=== PATIENT | male | born 1950 | race Caucasian/White ===

== ENCOUNTER 2016-07-14 16:17 | Emergency (ER) | payer MEDICARE, MEDICAID ==
[~2016-07-14] VITALS: Ht 182.9 cm; Wt 63.5 kg
[2016-07-14 16:17] VITALS: BP 157/86; PULSE 66; RESP 17; TEMP 97.6; O2SAT 96
[~2016-07-14 16:17] MED LIST: ASPI-1063 PO; BP MEDS; ENAL10TA PO; GABA-531 PO; LOSARTEN PO; METH40TA14; METHADONE PO; PRED20TA PO; RISP2TAB5 PO
--- NOTE | 2016-07-14 17:58 | NUR ---
Note antonio in ED - 07/14/16 at 1820 by FADI Patient to KEERTHI rangel for evaluation. Side rails up. Report given to Lisandra POSADAS
--- NOTE | 2016-07-14 18:11 | NUR ---
Jt alvarez in ED - 07/14/16 at 1820 by FADI ER SWATCH PASTER Татьяна at bedside for evaluation
--- NOTE | 2016-07-14 19:00 | NUR ---
Patient to ER bed 8 to gown for evaluation. Side rails .
--- NOTE | 2016-07-14 19:15 | NUR ---
PT IN BED 8 WITH C/O NUMBNESS AND TINGLING TO BILATERAL HANDS AND FEET. ROGELIO ANTONIO BUSINESS OFFICE ASSISTANT AWARE.
--- NOTE | 2016-07-14 19:31 | NUR ---
Jt alvarez in [facility] - 07/14/16 at 2320 by JANE KEERTHI Vaz RN at bedside examining patient.
--- NOTE | 2016-07-14 19:31 | NUR ---
KEERTHI Holman FURNITURE DUSTER at bedside examining patient.
[2016-07-14 19:55] LABS: HEMATOCRIT 36.2 % (36-54); HEMOGLOBIN 12.3 g/dL (14.0-18.0); MEAN CORPUSCULAR HEMOGLOBIN 27 pg (27-31); MEAN CORPUSCULAR HGB CONC 34 % (32-36); MEAN CORPUSCULAR VOLUME 80 fL (79.0-98.0); PLATELET COUNT (AUTO) 218 K/uL (130-430); RED BLOOD CELL COUNT(AUTO) 4.55 MIL/uL (4.2-6.2); RED CELL DISTRIBUTION WIDTH 12.8 % (9.0-15.0); WHITE BLOOD COUNT (AUTO) 9.8 K/uL (4.8-10.8)
[2016-07-14 20:22] LABS: ATYPICAL LYMPHOCYTES % 0 % (0-0); BAND % (MANUAL) 1 % (0-6); BASOPHILS % (MANUAL) 0 % (0-2); EOSINOPHILS % (MANUAL) 3 % (0-7); LYMPHOCYTES % (MANUAL) 52 % (20-46); MONOCYTES % (MANUAL) 5 % (0-11)
--- NOTE | 2016-07-14 21:15 | NUR ---
Patient given written and verbal discharge instructions and verbalizes understanding. ER MD discussed with patient the results and treatment provided. Given copies of tests performed in ER. Patient in stable condition. ID arm band removed. Rx of gabapentin given. Patient educated on pain management and to follow up with PMD. Pain Scale 1/10. Opportunity for questions provided and answered.
[2016-07-14 21:21] VITALS: BP 146/86; PULSE 76; RESP 17; TEMP 97.6; O2SAT 96
== END 2016-07-14 21:21 | disposition home or self-care (01) ==
LOC: SED 16:17
DX: R20.0 Anesthesia of skin (principal); I10 Essential (primary) hypertension; J44.9 Chronic obstructive pulmonary disease, unspecified; Z71.6 Tobacco abuse counseling; Z91.02 Food additives allergy status
CPT/HCPCS: 36415; 83735-TC; 85007; 85027; 85379; 93005; 99285

== ENCOUNTER 2017-02-22 20:44 | Emergency (ER) | payer MEDICARE, MEDICAID ==
[~2017-02-22] VITALS: Ht 182.9 cm; Wt 68.0 kg
[~2017-02-22 20:44] MED LIST changes: -BP MEDS; -METH40TA14
[2017-02-22 20:45] VITALS: BP_SYST 161
--- NOTE | 2017-02-22 20:45 | NUR ---
Pt in waiting room , awaiting available bed, stable.
--- NOTE | 2017-02-22 21:10 | NUR ---
Patient to ER bed 2 to gown for evaluation. Side rails up. Report given to Steve GREEN.
--- NOTE | 2017-02-22 21:15 | NUR ---
Dr Vivas at bedside to evaluate patient.
--- NOTE | 2017-02-22 21:20 | NUR ---
Patient to ER via triage with c/o right flank pain, urgency, and frequency x 1 week. Patient able to ambulate to bed 2 without difficulty with slow, steady gait. Patient given urinal to attempt to provide urine sample. Patient has been seen and evaluated by Dr Vivas. Will continue to observe and assess.
[2017-02-22] MEDS ORDERED: KETOROLAC TROMETHAMINE 30 MG VIAL IVP ONE (21:30)
[2017-02-22] MEDS ORDERED: ONDANSETRON HCL 4 MG/2 ML VIAL IVP ONE (21:30)
[2017-02-22] MEDS ORDERED: NACL 0.9% 1,000 ML IV ONE (21:30)
--- NOTE | 2017-02-22 21:48 | NUR ---
Patient to X-ray department for films, ambulatory with slow, steady gait.
[2017-02-22 21:49] LABS: BASOPHILS # (AUTO) 0.1 K/uL (0.0-0.2); BASOPHILS % (AUTO) 0.6 % (0.0-2.0); EOSINOPHILS # (AUTO) 0.5 K/uL (0.0-0.4); EOSINOPHILS % (AUTO) 5.8 % (0.0-4.0); HEMATOCRIT 36.2 % (36-54); HEMOGLOBIN 11.6 g/dL (14.0-18.0); LYMPHOCYTES # (AUTO) 3.7 K/uL (1.0-5.5); MEAN CORPUSCULAR HEMOGLOBIN 25 pg (27-31); MEAN CORPUSCULAR HGB CONC 32 % (32-36); MEAN CORPUSCULAR VOLUME 78 fL (79.0-98.0); MONOCYTES # (AUTO) 0.6 K/uL (0.0-1.0); MONOCYTES % (AUTO) 7.5 % (1.7-9.3); NEUTROPHILS # (AUTO) 3.6 K/uL (1.8-7.7); NEUTROPHILS % (AUTO) 42.1 % (40.0-70.0); PLATELET COUNT (AUTO) 257 K/uL (130-430); RED BLOOD CELL COUNT(AUTO) 4.62 MIL/uL (4.2-6.2); RED CELL DISTRIBUTION WIDTH 17.7 % (9.0-15.0); WHITE BLOOD COUNT (AUTO) 8.4 K/uL (4.8-10.8)
--- NOTE | 2017-02-22 21:55 | NUR ---
Patient back in ER, without incident.
[2017-02-22 21:57] LABS: CALCIUM 9.1 mg/dL (8.4-11.0); CREATININE 1.11 mg/dL (0.55-1.30); POTASSIUM 3.8 mmol/L (3.5-5.1)
[2017-02-22 22:03] LABS: ALBUMIN 3.9 g/dL (3.4-4.8); TOTAL BILIRUBIN 0.5 mg/dL (0.0-1.0)
--- NOTE | 2017-02-22 22:05 | NUR ---
Patient ambulated to bathroom to attempt to provide urine sample, will medicate upon return to ER.
--- NOTE | 2017-02-22 22:15 | NUR ---
Scanner not working, unable to scan patient or medication prior to medication administration. IVF infusing without difficulty-no redness or swelling noted at site. Urine sample obtained and sent to lab.
[2017-02-22 22:49] LABS: BILIRUBIN,URINE NEGATIVE (NEGATIVE); BLOOD, URINE 2+ (NEGATIVE); CLARITY/URINE CLEAR (CLEAR); COLOR,URINE YELLOW (YELLOW); GLUCOSE,URINE NEGATIVE (NEGATIVE); KETONES,URINE NEGATIVE (NEGATIVE); LEUKOCYTE ESTERASE ,URINE NEGATIVE (NEGATIVE); NITRITE, URINE NEGATIVE (NEGATIVE); PH,URINE 5.5 (5.0-8.0); PROTEIN URINE NEGATIVE (NEGATIVE); UROBILINOGEN,URINE 0.2 (0.2-1.0)
[2017-02-22 22:52] LABS: BACTERIA,URINE FEW /HPF (None Seen); MUCUS,URINE None Seen /LPF (None Seen); WBC,URINE 0-3 /HPF (0-3)
[2017-02-22 22:57] VITALS: BP_SYST 131
--- NOTE | 2017-02-22 23:00 | NUR ---
Patient given written and verbal discharge instructions and verbalizes understanding. ER MD discussed with patient the results and treatment provided. Patient in stable condition. ID arm band removed. IV catheter removed intact and dressing applied, no active bleeding. Rx of Motrin given. Patient educated on pain management and to follow up with PMD. Pain Scale 2. Opportunity for questions provided and answered.
== END 2017-02-22 23:00 | disposition home or self-care (01) ==
LOC: SED 20:44
DX: R07.89 Other chest pain (principal); I10 Essential (primary) hypertension; J44.9 Chronic obstructive pulmonary disease, unspecified; Z88.8 Allergy status to other drugs, medicaments and biological substances; Z79.82 Long term (current) use of aspirin; Z79.899 Other long term (current) drug therapy
CPT/HCPCS: 36415; 71010; 74176; 80053; 81000; 85025; 96361; 96374; 96375; 99285; J1885; J2405; J7030

== ENCOUNTER 2017-03-10 13:24 | Outpatient (CLI) | payer MEDICARE, MEDICAID | END 2017-03-10 18:07 | disposition home or self-care (01) | LOC: SRD 13:24 | DX: M47.812 Spondylosis without myelopathy or radiculopathy, cervical region (principal); M96.1 Postlaminectomy syndrome, not elsewhere classified | CPT/HCPCS: 72052 ==

== ENCOUNTER 2019-05-15 13:27 | Emergency (ER) | payer MEDICARE, MEDICAID ==
[~2019-05-15 13:27] MED LIST changes: -ASPI-1063 PO; +ASPI-1153 PO
--- NOTE | 2019-05-15 14:20 | NUR ---
Called pt x 1 , no answer
--- NOTE | 2019-05-15 14:33 | NUR ---
Called pt x 2 , no answer
--- NOTE | 2019-05-15 14:40 | NUR ---
Called pt x 3, no answer, LWBS
== END 2019-05-15 14:40 | disposition left against medical advice (07) ==
LOC: SED 13:27
DX: R05 Cough (principal); Z53.21 Procedure and treatment not carried out due to patient leaving prior to being seen by health care provider
CPT/HCPCS: 71045

== ENCOUNTER 2019-05-15 17:46 | Emergency (ER) | payer MEDICARE, MEDICAID ==
[~2019-05-15] VITALS: Ht 167.6 cm; Wt 59.9 kg
--- NOTE | 2019-05-15 17:50 | NUR ---
Patient to ER bed H1 for evaluation. Side rails up.
--- NOTE | 2019-05-15 17:52 | NUR ---
Pt brought by self , A&Ox4, pt presents to ER with cough and congestion for 2 days, afebrile, skin pink and warm, cap refill <3, VSS.
[2019-05-15 17:57] VITALS: BP_SYST 189
--- NOTE | 2019-05-15 18:00 | NUR ---
Татьяна Holman NP at bedside examining patient
[2019-05-15 19:21] VITALS: BP_SYST 159
--- NOTE | 2019-05-15 19:21 | NUR ---
Patient given written and verbal discharge instructions and verbalizes understanding. ER MD discussed with patient the results and treatment provided. Patient in stable condition. ID arm band removed. Rx of Azithromycin, Promethazine and Albuterol given. Patient educated on pain management and to follow up with PMD. Pain Scale 0. Opportunity for questions provided and answered. Medication side effect fact sheet provided.
== END 2019-05-15 19:21 | disposition home or self-care (01) ==
LOC: SED 17:46
DX: J06.9 Acute upper respiratory infection, unspecified (principal); F17.210 Nicotine dependence, cigarettes, uncomplicated; I10 Essential (primary) hypertension; J44.9 Chronic obstructive pulmonary disease, unspecified; Z85.038 Personal history of other malignant neoplasm of large intestine; Z71.6 Tobacco abuse counseling; Z79.899 Other long term (current) drug therapy; Z79.82 Long term (current) use of aspirin; Z91.041 Radiographic dye allergy status
CPT/HCPCS: 36415; 86710; 99283

== ENCOUNTER 2020-05-25 11:14 | Emergency (ER) | payer MEDICARE, MEDICAID ==
[~2020-05-25 11:14] MED LIST changes: -ASPI-1153 PO; +ASPI-1393 PO; -ENAL10TA PO; +ENAL10TA19 PO
[2020-05-25] MEDS ORDERED: PROPOFOL DRIP 100 ML IV ONE (13:03)
== END 2020-05-25 11:38 | disposition left against medical advice (07) ==
LOC: SED 11:14
DX: I10 Essential (primary) hypertension (principal); Z53.21 Procedure and treatment not carried out due to patient leaving prior to being seen by health care provider
CPT/HCPCS: 93005; J2704

== ENCOUNTER 2020-09-29 13:58 | Emergency (ER) | payer MEDICARE, MEDICAID ==
[2020-09-29 14:01] VITALS: BP_SYST 150
[2020-09-29] MEDS ORDERED: ONDANSETRON 4 MG ODT TAB PO ONE (16:00)
[2020-09-29 16:37] VITALS: BP_SYST 139
== END 2020-09-29 16:30 | disposition home or self-care (01) ==
LOC: SED 13:58
DX: S05.12XA Contusion of eyeball and orbital tissues, left eye, initial encounter (principal); R04.0 Epistaxis; I10 Essential (primary) hypertension; J44.9 Chronic obstructive pulmonary disease, unspecified; Z79.899 Other long term (current) drug therapy; Z79.82 Long term (current) use of aspirin; Z88.6 Allergy status to analgesic agent; Y04.2XXA Assault by strike against or bumped into by another person, initial encounter; Y93.89 Activity, other specified; Y92.89 Other specified places as the place of occurrence of the external cause; Y99.8 Other external cause status
CPT/HCPCS: 70450; 72125; 76376; 99285; Q0162